=== PATIENT | male | born 1945 | race Caucasian/White ===

== ENCOUNTER → 2018-12-13 | Outpatient (CLI) | payer MEDICARE | END | disposition home or self-care (01) | LOC: RAH 16:10 | PROVIDERS: ATTEND Internal Medicine Critical Care Medicine | DX: M47.816 Spondylosis without myelopathy or radiculopathy, lumbar region (principal); M48.07 Spinal stenosis, lumbosacral region | CPT/HCPCS: 72110 ==

== ENCOUNTER → 2018-12-26 | Outpatient (CLI) | payer MEDICARE | END | disposition home or self-care (01) | LOC: RAH 10:28 | PROVIDERS: ATTEND Internal Medicine Critical Care Medicine | DX: Z13.6 Encounter for screening for cardiovascular disorders (principal) | CPT/HCPCS: 76775 ==

== ENCOUNTER → 2019-01-09 | Outpatient (CLI) | payer MEDICARE | END | disposition home or self-care (01) | LOC: RAH 09:15 | PROVIDERS: ATTEND Internal Medicine Critical Care Medicine | DX: S30.850A Superficial foreign body of lower back and pelvis, initial encounter (principal); M47.817 Spondylosis without myelopathy or radiculopathy, lumbosacral region; M48.061 Spinal stenosis, lumbar region without neurogenic claudication; M89.38 Hypertrophy of bone, other site; M48.07 Spinal stenosis, lumbosacral region; W45.8XXA Other foreign body or object entering through skin, initial encounter; Y93.89 Activity, other specified; Y92.89 Other specified places as the place of occurrence of the external cause; Y99.8 Other external cause status | CPT/HCPCS: 72131 ==

== ENCOUNTER → 2023-01-04 | Outpatient (CLI) | payer OTHER | END | disposition home or self-care (01) | LOC: RAH 13:04 | PROVIDERS: ATTEND Orthopaedic Surgery | DX: M17.11 Unilateral primary osteoarthritis, right knee (principal); M81.0 Age-related osteoporosis without current pathological fracture; M25.461 Effusion, right knee; M25.761 Osteophyte, right knee; M25.851 Other specified joint disorders, right hip | CPT/HCPCS: 73700 ==

== ENCOUNTER 2023-01-20 05:55 | Observation (INO) | payer OTHER ==
[2023-01-13 14:18] LABS: EOSINOPHILS % (AUTO) 5.8 % (0.0-8.0); HEMATOCRIT 45.6 % (42-54); LYMPHOCYTES % (AUTO) 29.5 % (21.0-51.0); MEAN CORPUSCULAR HEMOGLOBIN 32.5 pg (27.0-33.0); MEAN CORPUSCULAR HGB CONC 32.9 g/dL (32.0-36.0); MEAN CORPUSCULAR VOLUME 98.9 fL (79-99); MONOCYTES % (AUTO) 13.9 % (3.0-13.0); NEUTROPHILS % (AUTO) 49.4 % (40.0-77.0); PLATELET COUNT (AUTO) 184 K/uL (130-400); RED BLOOD CELL COUNT(AUTO) 4.61 MIL/uL (4.50-6.20); RED CELL DISTRIBUTION WIDTH 12.8 % (11.0-15.5)
[2023-01-13 14:25] LABS: CREATININE 1.2 mg/dL (0.5-1.5); POTASSIUM 4.4 mmol/L (3.5-5.1)
[2023-01-13 14:28] LABS: INR 0.94 (0.85-1.15); PROTHROMBIN TIME 10.9 SEC (9.6-11.6)
[2023-01-13 14:30] LABS: PARTIAL THROMBOPLASTIN TIME 26.9 SEC (26.3-35.5)
[2023-01-13 14:36] VITALS: BP 145/69; PULSE 83; RESP 18
[2023-01-20] VITALS (32 sets, daily range): BP systolic 104–151; BP diastolic 59–95; PULSE 65–107; RESP 12–20; O2SAT 98–99
[~2023-01-20] VITALS: Ht 182.9 cm; Wt 94.3 kg
[~2023-01-20 05:55] MED LIST: AEC81 PO; BACL20TA PO; CALC-909 PO; CALM POWDER PO; CEFAZOLIN SODIUM 1 GM VIAL IVPB PRN; GABA300C PO; LACTATED RINGERS 1000ML 1,000 ML IV SCH; LOTE8.3D OU; MONT-39 PO; OMEP40CA21 PO; OXYC1TAB12 PO; SYSTANE OU; VENTOLIN IH
[2023-01-20] MEDS ORDERED: FENTANYL CITRATE PF 50 MCG/1 ML 2ML VIAL ONE ×4 (06:52→10:35)
[2023-01-20] MEDS: CEFAZOLIN SODIUM 2 GM VIAL ONE ×2 (06:52→07:44)
[2023-01-20] MEDS ORDERED: PROPOFOL 10 MG/ML 20ML VIAL IV ONE (06:52)
[2023-01-20] MEDS ORDERED: MIDAZOLAM HCL 1 MG/ML 2ML VIAL ONE (06:52)
[2023-01-20] MEDS ORDERED: ROCURONIUM 10MG/1ML SYR 10 MG/ML ML ONE ×2 (06:52→07:55)
[2023-01-20] MEDS ORDERED: LIDOCAINE PF 100MG/5ML (2%) SYRINGE 5ML ONE (06:52)
[2023-01-20] MEDS ORDERED: TRANEXAMIC ACID 1000MG/10ML ONE (07:04)
[2023-01-20] MEDS ORDERED: DEXAMETHASONE SOD PHOSPHATE 10MG/ML 1ML VIAL ONE ×2 (07:39→09:20)
[2023-01-20] MEDS ORDERED: ONDANSETRON 4MG INJ ONE (07:39)
[2023-01-20] MEDS ORDERED: ONDANSETRON 4MG INJ IVP PRN (08:00)
[2023-01-20] MEDS ORDERED: 0.9%NACL 1000ML 1,000 ML IV SCH (08:00)
[2023-01-20] MEDS ORDERED: HYDROCODONE/ACETAMINOPHEN 5/325 MG TAB PO PRN (08:00)
[2023-01-20] MEDS ORDERED: KCL 20 MEQ ERTAB PO PRN (08:00)
[2023-01-20] MEDS ORDERED: POTASSIUM CHLORIDE 10% ELIXIR 20 MEQ/15 ML UDCUP PO PRN (08:00)
[2023-01-20] MEDS ORDERED: POTASSIUM CHLORIDE 20MEQ/100ML 100 ML IV PRN (08:00)
[2023-01-20] MEDS ORDERED: HYDRALAZINE 20MG/ML VIAL ONE (08:17)
[2023-01-20] MEDS ORDERED: ROPIVACAINE 0.5% 5MG/ML 30ML IJ ONE (08:53)
[2023-01-20] MEDS: MONTELUKAST SODIUM 10 MG TAB PO SCH (09:00)
[2023-01-20] MEDS: POLYETHYLENE GLYCOL 3350 17 GM POWD.PACK PO SCH (09:00)
[2023-01-20] MEDS: GABAPENTIN 300 MG CAPSULE PO SCH ×3 (09:00→20:50)
[2023-01-20] MEDS ORDERED: NON-FORMULARY MEDICATION 1 EACH (Omeprazole 40 MG) PO SCH (09:00)
[2023-01-20] MEDS ORDERED: BACLOFEN 20 MG PO SCH (09:00)
[2023-01-20] MEDS: ASPIRIN 81 MG EC TAB PO SCH ×2 (09:00→20:50)
[2023-01-20] MEDS ORDERED: KETOROLAC 30MG VIAL (30MG/ML) ONE (09:03)
[2023-01-20] MEDS ORDERED: NEOSTIGMINE 5MG/5ML SYR IV ONE (09:22)
[2023-01-20] MEDS ORDERED: GLYCOPYRROLATE 1 MG/5 ML SYRINGE ONE (09:22)
[2023-01-20] MEDS: ACETAMINOPHEN 1,000 MG/100 ML VIAL IV SCH ×2 (10:16→18:12)
[2023-01-20] MEDS ORDERED: MEPERIDINE-PF 25 MG/ML SYG ONE (10:18)
[2023-01-20] MEDS: IBUPROFEN 800MG + NS 250ML IV SCH ×2 (11:01→20:52)
[2023-01-20] MEDS ORDERED: ALBUTEROL IH PRN (11:30)
[2023-01-20] MEDS: HYDROCODONE/ACETAMINOPHEN 10/325 MG TAB PO PRN ×2 (12:03→23:01)
[2023-01-20] MEDS: LOTEPREDNOL ETABONATE OU SCH ×2 (14:00→21:00)
[2023-01-20] MEDS: BACLOFEN 10 MG TABLET PO SCH ×2 (14:27→20:50)
[2023-01-20] MEDS: TRAMADOL HCL 50 MG TABLET PO SCH ×2 (14:27→20:51)
[2023-01-20] MEDS: MORPHINE 4 MG SYG IVP PRN (14:55)
[2023-01-20] MEDS: CEFAZOLIN SODIUM 1 GM VIAL IVPB SCH (18:12)
[2023-01-21] MEDS: MORPHINE 4 MG SYG IVP PRN (00:08)
[2023-01-21] MEDS ORDERED: CEFAZOLIN SODIUM 1 GM VIAL ONE (01:38)
[2023-01-21] MEDS ORDERED: ACETAMINOPHEN 1,000 MG/100 ML VIAL IV ONE (01:39)
[2023-01-21] MEDS: TRAMADOL HCL 50 MG TABLET PO SCH ×3 (01:42→11:31)
[2023-01-21] MEDS: ACETAMINOPHEN 1,000 MG/100 ML VIAL IV SCH (01:43)
[2023-01-21] MEDS: CEFAZOLIN SODIUM 1 GM VIAL IVPB SCH (01:43)
[2023-01-21 04:00] VITALS: BP 129/68; PULSE 89; RESP 20
[2023-01-21 04:58] LABS: HEMATOCRIT 35.9 % (42-54); MEAN CORPUSCULAR HGB CONC 33.7 g/dL (32.0-36.0); MEAN CORPUSCULAR VOLUME 97.8 fL (79-99); RED BLOOD CELL COUNT(AUTO) 3.67 MIL/uL (4.50-6.20); RED CELL DISTRIBUTION WIDTH 12.7 % (11.0-15.5); WHITE BLOOD COUNT (AUTO) 11.9 K/uL (4.8-10.8)
[2023-01-21 05:20] LABS: CREATININE 1.4 mg/dL (0.5-1.5); POTASSIUM 4.8 mmol/L (3.5-5.1)
[2023-01-21] MEDS: IBUPROFEN 800MG + NS 250ML IV SCH (06:25)
[2023-01-21 08:00] VITALS: BP 114/58; PULSE 86; RESP 16
[2023-01-21] MEDS: ASPIRIN 81 MG EC TAB PO SCH (08:07)
[2023-01-21] MEDS: MONTELUKAST SODIUM 10 MG TAB PO SCH (08:07)
[2023-01-21] MEDS: BACLOFEN 10 MG TABLET PO SCH ×2 (08:07→14:17)
[2023-01-21] MEDS: HYDROCODONE/ACETAMINOPHEN 10/325 MG TAB PO PRN ×2 (08:07→12:03)
[2023-01-21] MEDS: GABAPENTIN 300 MG CAPSULE PO SCH (08:07)
[2023-01-21] MEDS: POLYETHYLENE GLYCOL 3350 17 GM POWD.PACK PO SCH (08:08)
[2023-01-21 08:50] VITALS: O2SAT 93
[2023-01-21] MEDS ORDERED: PANTOPRAZOLE 40 MG TAB DR PO SCH (09:00)
[2023-01-21] MEDS: LOTEPREDNOL ETABONATE OU SCH (09:00)
[2023-01-21 11:34] VITALS: BP 134/64; PULSE 82; RESP 16
[2023-01-23] MEDS ORDERED: BISACODYL 10 MG SUPP.RECT RC PRN (08:00)
== END 2023-01-21 15:30 | disposition home or self-care (01) ==
LOC: DAH 05:55 → DAHIP 05:56 → 4AH 13:00
PROVIDERS: ADMIT Orthopaedic Surgery; ATTEND Orthopaedic Surgery
DX: M17.11 Unilateral primary osteoarthritis, right knee (principal); Z20.822 Contact with and (suspected) exposure to COVID-19; J45.909 Unspecified asthma, uncomplicated; K21.9 Gastro-esophageal reflux disease without esophagitis; Z79.899 Other long term (current) drug therapy
CPT/HCPCS: 80048 ×2; 85025; 85610; 85730; 87426; 36415 ×2; 93005; 87641; 64447; 27447; 96365; 96366 ×2; 96375; 96367; 97161; 97039 ×3; 97116 ×3; 96376; 85027; A6260; C1713; G0378 ×28; A4663; J7030; J7120 ×2; J3010 ×4; J0690 ×3; J3490 ×2; J1100 ×2; J2710; J2001; J0360; J2250; J2704; J2405; J2270 ×2; J1885; J2175; J2795; J1741 ×2; A6223; G0168; A4649 ×3; A6212; C1776 ×3; A5120; A4215; A4223 ×2; A4657; A4222; A4221

== ENCOUNTER → 2023-11-29 | Outpatient (CLI) | payer OTHER ==
[~2023-11-29] MED LIST changes: -CEFAZOLIN SODIUM 1 GM VIAL IVPB PRN; -LACTATED RINGERS 1000ML 1,000 ML IV SCH; +NAPR-1196 PO
== END | disposition home or self-care (01) ==
LOC: OIH 11:39
PROVIDERS: ATTEND Internal Medicine Critical Care Medicine
DX: Z13.6 Encounter for screening for cardiovascular disorders (principal); Z82.49 Family history of ischemic heart disease and other diseases of the circulatory system
CPT/HCPCS: 75571

== ENCOUNTER → 2024-01-06 | Outpatient (CLI) | payer OTHER ==
[2024-01-06 12:35] LABS: ALBUMIN 3.7 g/dL (3.5-5.0); BILIRUBIN,TOTAL 0.5 mg/dL (0.2-1.0); CREATININE 1.3 mg/dL (0.5-1.3); POTASSIUM 4.8 mmol/L (3.5-5.1); TOTAL PROTEIN, SERUM 7.2 g/dL (6.0-8.3)
== END | disposition home or self-care (01) ==
LOC: LAB 09:31
PROVIDERS: ATTEND Student in an Organized Health Care Education/Training Program
DX: I10 Essential (primary) hypertension (principal)
CPT/HCPCS: 36415; 80053

== ENCOUNTER → 2024-02-24 | Outpatient (CLI) | payer OTHER ==
[2024-02-24 12:46] LABS: ALBUMIN 3.8 g/dL (3.5-5.0); BILIRUBIN,TOTAL 0.6 mg/dL (0.2-1.0); CREATININE 1.4 mg/dL (0.5-1.3); POTASSIUM 4.8 mmol/L (3.5-5.1); TOTAL PROTEIN, SERUM 7.1 g/dL (6.0-8.3)
== END | disposition home or self-care (01) ==
LOC: LAB 08:52
PROVIDERS: ATTEND Student in an Organized Health Care Education/Training Program
DX: I10 Essential (primary) hypertension (principal)
CPT/HCPCS: 36415; 80053

== ENCOUNTER 2024-06-04 10:32 | Emergency (ER) | payer OTHER ==
[~2024-06-04] VITALS: Ht 182.9 cm; Wt 93.0 kg
[2024-06-04] MEDS: 0.9%NACL 1000ML 1,000 ML IV ONE (11:03)
[2024-06-04] MEDS: DiphenhydrAMINE HCL 50 MG/ML VIAL IV ONE (11:03)
[2024-06-04] MEDS: PROCHLORPERAZINE 10MG/2ML INJ IV ONE (11:03)
--- NOTE | 2024-06-04 11:05 | ERN ---
General Chief Complaint: Headache Stated Complaint: HEADACHE Time Seen by MD: 10:40 Time Seen by Midlevel: 10:42 Source: patient History of Present Illness Initial Comments 79-year-old male who presents to the ED due to a headache onset yesterday. Reports headache is right-sided, light sensitivity. Patient reports he is currently getting over a cold but denies vision disturbance, dizziness, or further associated symptoms. PMHx HTN, hypercholesterolemia Allergies: Coded Allergies: No Known Allergies (Unverified Allergy, Unknown, 11/08/21) Home Meds Active Scripts Amoxicillin/Potassium Clav (Amox Tr-K Clv 875-125 mg Tab) 875 Mg-125 Mg Tablet, 1 TAB PO BID for 7 Days, #14 TAB 0 Refills Prov:THERESA VILLEDA 06/04/24 Reported Medications Naproxen (Naproxen) 250 Mg Tablet, 250 MG PO BID, TAB 02/06/23 [Calm Powder] No Conflict Check, 1 APPL PO DAILY 01/13/23 [Ventolin] No Conflict Check, 2 PUFF IH AD PRN for SHORTNESS OF BREATH/WHEEZING 01/13/23 [Systane] No Conflict Check, 1 DROP OU AD PRN for DRY EYES 01/13/23 Loteprednol Etabonate (Eysuvis) 8.3 Ml Drops.susp, 1 DROP OU TID, DROP 01/13/23 Oxycodone HCl/Acetaminophen (Oxycodone-Acetaminophen 10-325) 1 Each Tablet, 1 EACH PO Q4HPRN PRN for PAIN, TAB 01/13/23 Omeprazole (Omeprazole) 40 Mg Capsule.dr, 40 MG PO AM, CAP 01/13/23 Montelukast Sodium (Montelukast Sodium) 10 Mg Tablet, 10 MG PO AM, TAB 01/13/23 Gabapentin (Neurontin) 300 Mg Capsule, 300 MG PO TID, CAP 01/13/23 Calcium Carbonate/Vitamin D3 (Calcium 600 + Vit D Caplet) 1 Each Tablet, 1 EACH PO AM, TAB 01/13/23 Baclofen (Baclofen) 20 Mg Tablet, 20 MG PO TID, TAB 01/13/23 Aspirin (ASPIRIN 81 MG ECTAB) 81 Mg Ectab, 81 MG PO DAILY, TAB.EC 01/13/23 Past Medical History Past Medical History: Other Medical History Other: CHRONIC BACK PAIN Past Surgical History: Other Surgical History Other: BACK SX, RT KNEE SX, CATARACT, NECK SX, LT SHOULDER REPLACEMENT Social History Social History: Negative, Lives with family, Other ROS Dictation Constitutional: Negative for fever,chills, and weight loss Eyes: Negative for injury, pain,redness, and discharge ENT: Negative for injury,pain or swelling Cardiovascular: Negative for chest pain, palpitations, and edema Respiratory: Negative for shortness of breath, cough, and wheezing, Abdomen/GI: Negative for abdominal pain, nausea, vomiting, diarrhea, and constipation Back: Negative for injury and pain : Negative for painful urination, bleeding or discharge MS/Extremity: Negative for injury and deformity Skin: Negative for rash, and discoloration Neuro: Positive for headache Negative for weakness, numbness, tingling, and seizure Psych: Negative for suicide ideation, homicidal ideation, and hallucinations Physical Exam Physical Exam Dictation General: awake, alert, no acute distress Head/Face: Normocephalic, atraumatic Eyes: PERRL, EOMI, normal conjunctiva ENT: oral mucosa moist Neck: Normal range of motion Cardiovascular: RRR, normal S1/S2 Respiratory: CTAB, no respiratory distress Skin: Warm, dry, normal turgor, no rash MS/Extremity: Pulses equal, no cyanosis, neurovascular intact, FROM Neuro: COAx4, GCS 15, normal sensory, CN 2-12 intact, normal cerebellar exam, normal gait, Psych: Normal behavior, mood, and affect normal Results Laboratory and Microbiology Lab and Micro Result Laboratory Tests Test 06/04/24 11:04 White Blood Count 5.7 K/uL (4.8-10.8) Red Blood Count 4.30 MIL/uL (4.50-6.20) L Hemoglobin 14.2 g/dL (14.0-18.0) Hematocrit 41.0 % (42-54) L Mean Corpuscular Volume 95.3 fL (79-99) Mean Corpuscular Hemoglobin 33.0 pg (27.0-33.0) Mean Corpuscular Hemoglobin Concent 34.6 g/dL (32.0-36.0) Red Cell Distribution Width 11.5 % (11.0-15.5) Platelet Count 144 K/uL (130-400) Mean Platelet Volume 9.8 fL (7.5-10.5) Immature Granulocyte % (Auto) 0.3 % (0-1) Neutrophils (%) (Auto) 80.3 % (40.0-77.0) H Lymphocytes (%) (Auto) 8.7 % (21.0-51.0) L Monocytes (%) (Auto) 9.6 % (3.0-13.0) Eosinophils (%) (Auto) 0.9 % (0.0-8.0) Basophils (%) (Auto) 0.2 % (0.0-5.0) Neutrophils # (Auto) 4.6 K/uL (1.8-7.7) Lymphocytes # (Auto) 0.5 K/uL (1.0-4.8) L Monocytes # (Auto) 0.6 K/uL (0.1-1.0) Eosinophils # (Auto) 0.05 K/uL (0.00-0.70) Basophils # (Auto) 0.01 K/uL (0.00-0.20) Absolute Immature Granulocyte (auto 0.02 K/uL (0-1) Nucleated Red Blood Cells 0.0 % (0.0-0.19) White Cell Morphology Comment See comments Prothrombin Time 10.2 SEC (9.6-11.6) Prothromb Time International Ratio 0.94 (0.85-1.15) Activated Partial Thromboplast Time 30.5 SEC (26.3-35.5) Sodium Level 135 mmol/L (136-145) L Potassium Level 4.4 mmol/L (3.5-5.1) Chloride Level 100 mmol/L (101-111) L Carbon Dioxide Level 29 mmol/L (21-32) Blood Urea Nitrogen 10 mg/dL (7-18) Creatinine 1.1 mg/dL (0.5-1.3) Glomerular Filtration Rate Calc 69 mL/min (>90) Random Glucose 126 mg/dL (70-105) H Total Calcium 8.6 mg/dL (8.5-10.1) Influenza Type A Antigen Negative For Type A Influenza Type B Antigen Negative For Type B SARS-CoV-2 Antigen (Rapid) POSITIVE FOR SARS AG Labs Reviewed?: Yes EKG/XRAY/US/CT/MRI CT Scan Comment REASON: Headache, HTN ORDERING PHYSICIAN: ALMERAZ,THERESA PA PROCEDURE: HEAD WO - CT HEAD/BRAIN W/O CONTRAST CT HEAD/BRAIN W/O CONTRAST CLINICAL HISTORY: Headache, HTN COMPARISON: None TECHNIQUE: Multiple sequential axial images of the head were obtained from the base of the skull through vertex. CT was performed with one or more of the following dose reduction techniques: automated exposure control, adjustment of the mA and/or kV according to patient size, or use of iterative reconstruction technique FINDINGS: There is mild atrophy and small vessel disease there is extensive mucoperiosteal thickening demonstrated in the maxillary sinuses and ethmoid air cells without air-fluid levels. There is also small air-fluid level in the sphenoid sinus. The mastoid air cells and orbits are unremarkable. The calvarium is intact. IMPRESSION: Acute and chronic sinusitis. MDM MDM: Differential diagnosis: Migraine, headache, viral illness, acute sinusitis Rationale: 79-year-old male who presents to the ED due to a headache onset yesterday. Reports headache is right-sided, light sensitivity. Patient reports he is currently getting over a cold but denies vision disturbance, dizziness, or further associated symptoms. PMHx HTN, hypercholesterolemia Per physical examination no neurological deficits noted, patient is alert and oriented. Labs are nonspecific. Influenza negative. [id number] head indicates acute and chronic sinusitis, mild atrophy and small-vessel disease noted. Patient received IV fluids, Compazine, Benadryl in the ED on re- examination patient verbalized headache improvement. Patient educated on findings and diagnosis. Advised to follow up with PCP. Return to the ED if any worsening symptoms. Antibiotics prescribed for outpatient treatment of acute sinusitis. Patient verbalized understanding. Patient stable for discharge. There are no social concerns with this patient. I independently interpreted the test that were performed, results were reviewed by me and considered findings on radiology if ordered. Medical management and examination interpretation discussions were had by me with other qualified healthcare professionals as indicated for the patient's care. ED Course Orders Procedure Category Date Status Time Cbc With Differential LAB 06/04/24 Complete 10:49 Basic Metabolic Panel LAB 06/04/24 Complete 10:49 Pt And Ptt LAB 06/04/24 Complete 10:49 Ct Head/Brain W/O CT 06/04/24 Resulted Contrast 10:49 Prochlorperazine PHA 06/04/24 Complete 10mg/2ml Inj 11:00 Diphenhydramine Hcl PHA 06/04/24 Complete (Benadryl Inj) 11:00 0.9%Nacl 1000ml (Ns PHA 06/04/24 Complete 1000ml) 11:00 Influenza Type A & B, LAB 06/04/24 Complete Rapid 11:08 Covid19 (Sars Antigen LAB 06/04/24 Complete Rapid) 11:08 Acetaminophen 500mg PHA 06/04/24 Complete Tab (Tylenol 500mg T 13:00 Ceftriaxone 1g Vial PHA 06/04/24 Complete (Rocephine 1g Inj) 13:00 Current Medications Medications (Trade) Dose Ordered Sig/Sree Route PRN Reason Start Time Stop Time Status Last Admin Dose Admin Acetaminophen (TYLenol 500MG TAB) 1,000 mg ONCE ONCE PO 06/04/24 13:00 06/04/24 13:01 DC 06/04/24 13:10 Ceftriaxone Sodium (ROCEphine 1G INJ) 1 gm ONCE ONCE IVPB 06/04/24 13:00 06/04/24 13:01 DC 06/04/24 13:10 Diphenhydramine HCl (BENAdryl INJ) 25 mg ONCE ONCE IV 06/04/24 11:00 06/04/24 11:01 DC 06/04/24 11:03 Prochlorperazine Edisylate (Compazine 10mg/ 2ml Inj) 10 mg ONCE ONCE IV 06/04/24 11:00 06/04/24 11:01 DC 06/04/24 11:03 Sodium Chloride 1,000 ml @ 0 mls/hr ONCE ONCE IV 06/04/24 11:00 06/04/24 11:01 DC 06/04/24 11:03 Vital Signs Date Time Temp Pulse Resp B/P (MAP) Pulse Ox O2 Delivery O2 Flow Rate FiO2 06/04/24 12:55 98.1 75 16 144/72 97 Room Air* 0 06/04/24 12:17 98.2 63 16 154/67 96 Room Air* 0 06/04/24 11:08 99.0 70 16 129/72 98 Room Air* 0 06/04/24 10:34 97.0 69 18 131/79 97 Room Air DX & DISP Disposition: Discharge Departure Impression: Primary Impression: Acute sinusitis Additional Impressions: SARS-CoV-2 positive, Migraine Condition: Stable Scripts Amoxicillin/Potassium Clav (Amox Tr-K Clv 875-125 mg Tab) 875 Mg-125 Mg Tablet 1 TAB PO BID for 7 Days, #14 TAB 0 Refills Prov: THERESA VILLEDA 06/04/24 Additional Instructions: Discharge home. Rest. Follow up with primary care DrZhane in 24 hours. Return to the ER for any acute changes or worsening symptoms. If any medications were prescribed take as directed. Okay to continue home medications unless otherwise discussed during your visit in the emergency room today. Patient was also advised to follow-up with primary care physician in 1 to 2 days for continued monitoring. Referrals: PRITI WOODARD MD (PCP) I participated in the following activities of this patient's care: For this patient encounter, I reviewed the PA or CELL COVERER documentation, treatment plan, and medical decision making. I did not have [id number] time with this patient. I will sign as the reviewing DrZhane And agree with the treatment plan and di sposition. TEHRESA VILLEDA Jun 04, 2024 11:05
[2024-06-04 11:21] LABS: BASOPHILS # (AUTO) 0.01 K/uL (0.00-0.20); BASOPHILS % (AUTO) 0.2 % (0.0-5.0); EOSINOPHILS # (AUTO) 0.05 K/uL (0.00-0.70); EOSINOPHILS % (AUTO) 0.9 % (0.0-8.0); IMMATURE GRANULOCYTE ABSOLUTE 0.02 K/uL (0-1); LYMPHOCYTES # (AUTO) 0.5 K/uL (1.0-4.8); LYMPHOCYTES % (AUTO) 8.7 % (21.0-51.0); MEAN CORPUSCULAR HGB CONC 34.6 g/dL (32.0-36.0); MEAN CORPUSCULAR VOLUME 95.3 fL (79-99); MONOCYTES # (AUTO) 0.6 K/uL (0.1-1.0); MONOCYTES % (AUTO) 9.6 % (3.0-13.0); NEUTROPHILS # (AUTO) 4.6 K/uL (1.8-7.7); NEUTROPHILS % (AUTO) 80.3 % (40.0-77.0); PLATELET COUNT (AUTO) 144 K/uL (130-400); RED CELL DISTRIBUTION WIDTH 11.5 % (11.0-15.5); WHITE BLOOD COUNT (AUTO) 5.7 K/uL (4.8-10.8)
[2024-06-04 11:25] LABS: CREATININE 1.1 mg/dL (0.5-1.3); POTASSIUM 4.4 mmol/L (3.5-5.1)
[2024-06-04 11:30] LABS: INFLUENZA TYPE A Negative For Type A (NEGATIVE); INFLUENZA TYPE B Negative For Type B (NEGATIVE)
[2024-06-04 11:42] LABS: INR 0.94 (0.85-1.15); PROTHROMBIN TIME 10.2 SEC (9.6-11.6)
[2024-06-04 11:44] LABS: PARTIAL THROMBOPLASTIN TIME 30.5 SEC (26.3-35.5)
[2024-06-04 11:48] LABS: COVID19 (SARS ANTIGEN RAPID) POSITIVE FOR SARS AG (NEGATIVE)
--- NOTE | 2024-06-04 12:24 | HMCIMG ---
CT HEAD/BRAIN W/O CONTRAST CLINICAL HISTORY: Headache, HTN COMPARISON: None TECHNIQUE: Multiple sequential axial images of the head were obtained from the base of the skull through vertex. CT was performed with one or more of the following dose reduction techniques: automated exposure control, adjustment of the mA and/or kV according to patient size, or use of iterative reconstruction technique FINDINGS: There is mild atrophy and small vessel disease there is extensive mucoperiosteal thickening demonstrated in the maxillary sinuses and ethmoid air cells without air-fluid levels. There is also small air-fluid level in the sphenoid sinus. The mastoid air cells and orbits are unremarkable. The calvarium is intact. IMPRESSION: Acute and chronic sinusitis.
[2024-06-04] MEDS ORDERED: AMOX1TAB16 PO (12:53)
[2024-06-04 12:55] VITALS: BP 144/72; PULSE 75; RESP 16; TEMP 98; O2SAT 97
[2024-06-04] MEDS: acetaMINOPHEN 500 MG TABLET PO ONE (13:10)
[2024-06-04] MEDS: cefTRIAXone 1G VIAL IVPB ONE (13:10)
== END 2024-06-04 13:11 | disposition home or self-care (01) ==
LOC: EDH 10:32
DX: U07.1 COVID-19 (principal); J01.90 Acute sinusitis, unspecified; G43.909 Migraine, unspecified, not intractable, without status migrainosus; E78.00 Pure hypercholesterolemia, unspecified; I10 Essential (primary) hypertension; Z79.82 Long term (current) use of aspirin; Z79.899 Other long term (current) drug therapy
CPT/HCPCS: 99285; 96374; 70450; 96375; 96361; 87426; 80048; 85025; 85610; 85730; 87804 ×2; 36415; J1200; J7030; J0780; J0696